=== PATIENT | male | born 1965 | race Caucasian/White ===

== ENCOUNTER 2020-08-14 07:17 | Outpatient (CLI) | payer BC ==
--- NOTE | 2020-08-14 10:02 | Fluoroscopy Report ---
BARIUM SWALLOW Indication: ESOPHAGEAL CANCER. Technique: Single contrast barium technique utilized to evaluate the esophagus. FINDINGS: To begin the exam, swallowing was evaluated in the lateral position under direct fluorosco py. Swallowing was normal. There is moderate mucosal irregularity in the middle third of the thoracic esophagus concerning for n eoplasm. There is no evidence for obstruction or high-grade stenosis. There were no abnormal tertiary contractions as seen with dysmotility. No gastroesophageal reflux. IMPRESSION: Irregular mucosal masslike lesion in the midesophagus concerning for neoplasm. Fluoroscopic time: 1.0 minutes Number of fluoroscopic images: 37 Signer Name: Chuck Chou Jr, MD Signed: 08/14/2020 9:58 AM Workstation Name: [id number]
== END 2020-08-14 07:18 | disposition home or self-care (01) ==
LOC: EDBD 07:17 → FLUORO 07:17
PROVIDERS: ATTEND Internal Medicine Gastroenterology
DX: C15.9 Malignant neoplasm of esophagus, unspecified (principal)
CPT/HCPCS: 74220

== ENCOUNTER 2020-08-30 06:21 | Outpatient (CLI) | payer BC ==
[2020-08-30] MEDS ORDERED: ONDANSETRON 4 MG/2 ML INJ IV ONE (07:33)
[2020-08-30] MEDS ORDERED: HYDROmorphone 1 MG/1 ML INJ IV ONE ×2 (07:34→11:40)
[2020-08-30] MEDS ORDERED: SODIUM CHLORIDE 0.9% 500 ML 500 ML IV SCH (08:00)
[2020-08-30 08:05] LABS: Hematocrit 45.2 % (35.5-45.6); Hemoglobin 15.1 gm/dl (11.8-15.2); Mean Corpuscular HGB Conc 33 % (32-34); Mean Corpuscular Volume 92 fl (84-94); Platelet Count 447 K/mm3 (140-440); Red Cell Distribution Width 13.6 % (13.2-15.2)
[2020-08-30 08:15] LABS: INR 0.93 (0.87-1.13)
[2020-08-30 08:16] LABS: BUN/Creatinine Ratio 14; Blood Urea Nitrogen 11 mg/dL (9-20); Calcium 10.1 mg/dL (8.4-10.2); Hemolysis Index 4; Partial Thromboplastin Time 28.1 Sec. (24.2-36.6)
[2020-08-30] MEDS ORDERED: HYDROmorphone 1 MG/1 ML INJ ONE (10:34)
[2020-08-30] MEDS ORDERED: LIDOCAINE (1%) 10 MG/1 ML VIAL 20 ML MDV ONE (10:35)
--- NOTE | 2020-08-30 13:07 | Cat Scan Report ---
CT-GUIDED LIVER BIOPSY INDICATION : abnormal weight loss. Esophageal mass. Liver masses. COMPARISON: CT from an outlying facility dated 07/16/2020. PROCEDURE: The risks (including but not limited to bleeding and infection) and benefits were explain ed to the patient and informed consent was obtained. The patient's acted as an conference interpreter. The patient was [id number]. All CT scans at this location are performed using CT dose reduction for ALARA by means of automated exposure control. A time out procedure was performed. The procedure site was prepped and draped in the usual sterile f ashion and lidocaine was used for local anesthesia. 1.5 mg of IV Dilaudid and 2 mg of IV Zofran for a nxiolysis. Using CT guidance, a 17-gauge introducer needle was advanced to the leading edge of a 3 cm hypodense mass in the right hepatic lobe via a posterior approach. 4 separate 18-gauge core biopsies measuring 1.3 cm in length were obtained for pathologic analysis. The pathologist was on site and deemed the sa mples adequate. The patient tolerated the procedure well with no complications. IMPRESSION: Successful CT-guided biopsy of a 3 cm right hepatic lobe mass. Signer Name: Chuck Chou Jr, MD Signed: 08/30/2020 1:02 PM Workstation Name: [id number]
[2020-08-30 15:45] VITALS: BP 105/75
== END 2020-08-30 15:00 | disposition home or self-care (01) ==
LOC: CATHLABREC 06:21 → CT 06:21 → CATHLABREC 15:00
PROVIDERS: ATTEND Internal Medicine Hematology & Oncology
DX: R63.4 Abnormal weight loss (principal); K76.89 Other specified diseases of liver; C78.7 Secondary malignant neoplasm of liver and intrahepatic bile duct; K63.89 Other specified diseases of intestine; K22.8 Other specified diseases of esophagus; F17.210 Nicotine dependence, cigarettes, uncomplicated; Z85.89 Personal history of malignant neoplasm of other organs and systems; Z79.899 Other long term (current) drug therapy; Z85.01 Personal history of malignant neoplasm of esophagus
CPT/HCPCS: 36415; 47000; 77012; 80048; 85027; 85610; 85730; 88307; J1170; J2405; J7040